=== PATIENT | female | born 1990 ===

== ENCOUNTER 2023-01-06 07:30 | Inpatient (IN) ==
[2023-01-06] MEDS ORDERED: LIDOCAINE 1% LOCAL 20 ML VIAL INFIL PRN (08:01)
[2023-01-06] MEDS ORDERED: OXYTOCIN 30 UNITS/NSS 30 UNITS/500 ML BAG IV PRN (08:01)
[2023-01-06] MEDS ORDERED: LACTATED RINGER'S 1,000 ML IV PRN (08:01)
[2023-01-06] MEDS ORDERED: Patient's ALLERGY Info needs ENTERED SCH (08:30)
[2023-01-06 08:44] LABS: Hematocrit (blood only) 32.4 % (37.0-47.0); Hemoglobin 11.2 g/dl (12.0-16.0); Mean Corpuscular Hemoglobin 31.3 pg (25.0-34.0); Mean Corpuscular Hgb Conc 34.6 g/dL (32.0-36.0); Mean Corpuscular Volume 90.5 fL (80.0-100.0); Platelet Count 194 K/uL (130-400); RDW Coefficient of Variation 13.2 % (11.5-14.5); RDW Standard Deviation 43.2 fL (36.4-46.3); Red Blood Count 3.58 M/uL (4.20-5.40)
--- NOTE | 2023-01-06 10:31 | History & Physical Report ---
Date of Service January 06, 2023 Assessment & Plan Admission and Anticipated Discharge Date Admission Date: January 06, 2023 History of Present Illness Chief Complaint: induction of labor for post dates Primary Care Provider: GALE PCP 32 F P0000 at 40+ weeks here for IOL . GBS is negative Allergies Allergy/AdvReac Type Severity Reaction Status Date / Time No Known Allergies Allergy Unverified 01/06/23 09:20 Home Medications Medication Instructions Recorded Confirmed Type calcium carbonate 500 mg calcium 500 mg PO DAILY PRN Acid Reflux 01/06/23 01/06/23 History (1,250 mg) chewable tablet vits no.124-ferrous fum 1 tab PO DAILY 01/06/23 01/06/23 History 27 mg iron-folic acid 800 mcg tablet ( Vitamin) Patient History Medical History Hemorrhoids Surgical History History of colonoscopy 2020 Hemorroids Social History Smoking Status: Never smoker Hx Alcohol Use: No Hx Substance Use: No Preferred Language: Slovak 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 Required: No Beliefs That Will Affect Care: None marital status: Current Living Situation: Spouse Assistive Devices: None OB History 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 neg Review of Systems All systems reviewed & are unremarkable except as noted in HPI & below Physical Exam Constitutional: WD/WN, vitals as above Eyes: PERRL, conjunctivae normal, anicteric sclerae Respiratory: normal respiratory effort, lungs clear to auscultation Cardiovascular: RRR, no murmur, no edema Gastrointestinal (Abdomen): Inspection/Auscultation: abdomen normal to inspection Musculoskeletal: Extremities: extremities normal to inspection Skin: no rashes, warm and dry Neurologic: patellar DTR's 2+ bilat, sensation intact Psychiatric: A+Ox3, euthymic affect Genitourinary: no vaginal lesions, no adnexal mass Manual OB Exam: + cervical dilation fingertip, + cervical effacement 50% and + station high OB Exam Monitor Tracing: + external FHT monitor used, + external uterine monitor used, + category I and + normal FHT variability cervix posterior/soft EFW 7.5 lbs. Results & Data Vital Signs (Past 12 Hours) Vital Signs Temp Pulse Resp BP 01/06/23 08:27 36.5 C 20 01/06/23 08:05 87 118/71 Laboratory Results Laboratory Results - last 72 hr 01/06/23 01/06/23 08:20 08:20 WBC 8.20 RBC 3.58 L Hgb 11.2 L Hct 32.4 L MCV 90.5 MCH 31.3 MCHC 34.6 RDW Std Deviation 43.2 RDW Coeff of Nancy 13.2 Plt Count 194 MPV 11.0 Blood Type Cancelled Antibody Screen Cancelled Code Status & VTE Plan VTE Prophylaxis Plan VTE Prophylaxis will be ordered: No Monitoring External Monitor Cat 1
[2023-01-06] MEDS ORDERED: DINOPROSTONE 10 MG INSERT PV ONE (10:37)
--- NOTE | 2023-01-06 10:55 | Labor Progress Brief Note ---
Date of Service January 06, 2023 Assessment & Plan Admission and Anticipated Discharge Date Admission Date: January 06, 2023 Physical Exam Genitourinary: OB Exam Monitor Tracing: + external FHT monitor used, + external uterine monitor used, + category I and + normal FHT variability Cervidil 10 mg placed vaginally Results & Data Vital Signs (Past 12 Hours) Vital Signs Temp Pulse Resp BP 01/06/23 08:27 36.5 C 20 01/06/23 08:05 87 118/71
[2023-01-07] MEDS: miSOPROStoL 50 MCG TAB PO PRN ×2 (00:01→04:07)
--- NOTE | 2023-01-07 09:01 | Labor Progress Brief Note ---
Date of Service January 07, 2023 Subjective Reason For Note: Routine Evaluation Assessment & Plan (1) Encounter for induction of labor: Plan Cervidil placed PV for cervical ripening eventually start Pitocin to augment labor pain meds including epidural as the pt desires Admission and Anticipated Discharge Date Admission Date: January 06, 2023 Physical Exam Constitutional: WD/WN, vitals as above Genitourinary: no vaginal lesions, no adnexal mass OB Exam Abdomen: + heart tones (140s, good variability) and + vertex Manual OB Exam: + cervical dilation fingertip, + cervical effacement 50% and + station high OB Exam Monitor Tracing: + external FHT monitor used Results & Data Vital Signs (Past 12 Hours) Vital Signs Temp Pulse Resp BP 01/07/23 07:06 18 01/07/23 07:06 36.8 C 18 01/07/23 07:07 81 111/70 01/07/23 03:05 36.9 C 98 H 16 100/56 L 01/06/23 23:50 16 01/06/23 23:50 36.7 C 16 01/06/23 23:50 77 01/06/23 23:50 99/52 L
[2023-01-07] MEDS ORDERED: DINOPROSTONE 10 MG INSERT PV ONE (09:15)
[2023-01-08] MEDS: miSOPROStoL 25 MCG TAB SL PRN ×2 (00:24→04:42)
[2023-01-08] MEDS ORDERED: OXYTOCIN 30 UNITS/NSS 30 UNITS/500 ML BAG IV PRN (07:52)
--- NOTE | 2023-01-08 07:52 | Obstetrical Progress Note ---
Date of Service January 08, 2023 Assessment & Plan Admission and Anticipated Discharge Date Admission Date: January 06, 2023 Subjective Patient is seen and examined IUP at 40.3 wks, IOL since 01/06 s/p 2 Cervidils, 2 PO, 2 SL Cytotecs No painful ctxs/ LOF/VB +FM has been uncomplicated GBS neg Bed side US: EFW 4020 gr, vertex, FHR 140's, AFV normal FHR categ I VE: Tight 1 cm/ 40%/ -3, posterior Discussed the findings and option of Burgos balloon mechanical dilatation with Oxytocin and she agrees Will eat breakfast and then proceed with Burgos All questions were answered. Results & Data Vital Signs (Past 12 Hours) Vital Signs Temp Pulse BP 01/08/23 04:42 36.9 C 84 99/54 L 01/08/23 00:04 36.6 C 83 101/52 L
--- NOTE | 2023-01-08 08:30 | Obstetrical Progress Note ---
Date of Service January 08, 2023 Assessment & Plan Admission and Anticipated Discharge Date Admission Date: January 06, 2023 Subjective Burgos balloon is placed without difficulty and inflated with 40 ml sterile water, attached to her medial thigh with tension Continue to monitor closely. Results & Data Vital Signs (Past 12 Hours) Vital Signs Temp Pulse BP 01/08/23 04:42 36.9 C 84 99/54 L 01/08/23 00:04 36.6 C 83 101/52 L
[2023-01-08] MEDS: LACTATED RINGER'S 1,000 ML IV SCH ×2 (08:45→15:10)
[2023-01-08] MEDS: BUTORPHANOL TARTRATE 1 MG/ML VIAL IV PRN ×2 (13:24→16:40)
--- NOTE | 2023-01-08 13:28 | Obstetrical Progress Note ---
Date of Service January 08, 2023 Assessment & Plan Admission and Anticipated Discharge Date Admission Date: January 06, 2023 Subjective Patient is reevaluated. She started to feel contractions, pain 5-6 /10 VE; bulb is in, cx feels 2-3 cm FHR categ I Ctxs q4-5 min, Oxytocin 10 miu/min Continue to monitor Results & Data Vital Signs (Past 12 Hours) Vital Signs Temp Pulse Resp BP 01/08/23 09:00 36.9 C 18 01/08/23 12:48 36.8 C 82 123/70 01/08/23 10:30 57 L 137/60 01/08/23 09:00 36.9 C 01/08/23 08:33 78 124/77 01/08/23 04:42 36.9 C 84 99/54 L
--- NOTE | 2023-01-08 14:48 | Obstetrical Progress Note ---
Date of Service January 08, 2023 Assessment & Plan Admission and Anticipated Discharge Date Admission Date: January 06, 2023 Subjective Patient is reevaluated. She slept after Stadol and contractions slowed down VE; bulb is in vagina, bloody show +, Cervix 4/ 30%/ -2, posterior, tight bag, AROM'ed, clear fluid FHR categ I Continue to monitor closely Results & Data Vital Signs (Past 12 Hours) Vital Signs Temp Pulse Resp BP 01/08/23 09:00 36.9 C 18 01/08/23 12:48 36.8 C 82 123/70 01/08/23 10:30 57 L 137/60 01/08/23 09:00 36.9 C 01/08/23 08:33 78 124/77 01/08/23 04:42 36.9 C 84 99/54 L
[2023-01-08] MEDS ORDERED: BUPIVACAINE 0.25% PF 30 ML VIAL ONE (15:10)
[2023-01-08] MEDS ORDERED: fentaNYL citrate PF 100 MCG/2 ML VIAL ONE (15:10)
[2023-01-08] MEDS ORDERED: SODIUM CHLORIDE 0.9% PF INJ 10 ML VIAL ONE (15:10)
[2023-01-08] MEDS ORDERED: ePHEDrine sulfate 50 MG/ML AMP ONE (15:10)
[2023-01-08] MEDS ORDERED: LIDOCAINE 2%/EPINEPHRINE 1:200,000 20 ML PF ONE ×2 (15:11→19:41)
[2023-01-08] MEDS ORDERED: fentaNYL 2MCG/ML ROPIVACAINE 1.25MG/ML 100 ML BAG EPI ONE (15:11)
[2023-01-08] MEDS ORDERED: fentaNYL citrate PF 100 MCG/2 ML VIAL EPI PRN (16:44)
[2023-01-08] MEDS ORDERED: BUPIVACAINE 0.25% PF 30 ML VIAL EPI STA (16:44)
[2023-01-08] MEDS ORDERED: SODIUM CHLORIDE 0.9% PF INJ 10 ML VIAL EPI STA (16:44)
[2023-01-08] MEDS ORDERED: ROPIVACAINE 0.5% PF 5 MG/ML 20 ML VIAL EPI PRN (16:44)
[2023-01-08] MEDS ORDERED: NALOXONE HCL 1 MG in SODIUM CHLORIDE 0.9% 1,000 ML IV PRN ×2 (16:44→20:47)
[2023-01-08] MEDS ORDERED: NALOXONE HCL 0.4 MG/1 ML VIAL/CARP IV PRN ×2 (16:44→20:47)
[2023-01-08] MEDS ORDERED: SODIUM CHLORIDE 0.9% PF INJ 10 ML VIAL EPI PRN (16:44)
[2023-01-08] MEDS ORDERED: fentaNYL citrate PF 100 MCG/2 ML VIAL EPI STA (16:44)
[2023-01-08] MEDS ORDERED: ePHEDrine sulfate 50 MG/ML AMP IV PRN ×2 (16:44→20:47)
[2023-01-08] MEDS ORDERED: LIDOCAINE 2% MPF LOCAL 5 ML VIAL EPI PRN (16:44)
[2023-01-08] MEDS ORDERED: NALBUPHINE HCL INJ 10 MG/ML AMP IV PRN ×2 (16:44→20:47)
[2023-01-08] MEDS ORDERED: LIDOCAINE 2%/EPINEPHRINE 1:200,000 20 ML PF EPI STA (16:44)
[2023-01-08] MEDS ORDERED: diphenhydrAMINE 50 MG/ML VIAL IV PRN ×2 (16:44→20:47)
[2023-01-08] MEDS ORDERED: fentaNYL 2MCG/ML ROPIVACAINE 1.25MG/ML 100 ML BAG EPI PRN (16:44)
[2023-01-08] MEDS ORDERED: BUPIVACAINE 0.25% PF 30 ML VIAL EPI PRN (16:44)
--- NOTE | 2023-01-08 16:44 | Anesthesiology Consultation ---
Date of Service January 08, 2023 Assessment & Plan (1) Encounter for pre-operative examination: Chart Review Chart Review: Patient NOT seen in Pre Admission Testing and Acceptable Risk for Labor Epidural Consults Requested none History Height/Weight Height: 5 ft 8 in Weight: 109.316 kg Allergies Allergy/AdvReac Type Severity Reaction Status Date / Time No Known Allergies Allergy Unverified 01/06/23 09:20 Medications Home Medications Medication Instructions Recorded Confirmed Last Taken calcium carbonate 500 mg calcium 500 mg PO DAILY PRN Acid Reflux 01/06/23 01/06/23 01/06/23 (1,250 mg) chewable tablet vits no.124-ferrous fum 1 tab PO DAILY 01/06/23 01/06/23 01/05/23 27 mg iron-folic acid 800 mcg tablet ( Vitamin) Active Medications Generic Name Dose Route Start Last Admin Trade Name Freq PRN Reason Stop Dose Admin Butorphanol Tartrate 1 mg 01/08/23 07:52 01/08/23 16:40 Butorphanol Tartrate 1 Mg/Ml Vial IV 02/07/23 07:51 1 mg Q2HWA PRN Administration Pain Oxytocin 30 units in 500 mls @ 20 mls/hr 01/08/23 07:52 01/08/23 15:30 Pitocin IV 01/10/23 07:51 1.2 units/hr .Q24H PRN 20 mls/hr Labor Induction/Augmentation Titration Protocol 1.2 UNITS/HR Lactated Ringer's 1,000 mls @ 150 mls/hr 01/08/23 10:15 01/08/23 15:10 Lr IV 02/07/23 10:14 999 mls/hr .[id number] CORNELL Administration Misoprostol 25 mcg 01/07/23 23:00 01/08/23 04:42 Misoprostol 25 Mcg Tab SL 02/06/23 22:59 25 mcg Q4 PRN Administration Cervical Ripening Past Medical History Medical History Hemorrhoids Past Surgical History Surgical History History of colonoscopy 2020 Hemorroids Social History Smoking Status: Never smoker Hx Alcohol Use: No Hx Substance Use: No Physical Exam Vital Signs Last Vital Signs Temp 98.4 F 01/08/23 15:05 Pulse 74 01/08/23 16:41 Resp 16 01/08/23 15:05 BP 113/74 01/08/23 16:33 Pulse Ox 98 01/08/23 16:41 Testing Laboratory Results 01/06/23 08:20 Blood Type A Positive 01/06/23 08:20 Blood Type Cancelled 01/06/23 08:20 Antibody Screen Cancelled 01/06/23 08:20 Antibody Screen NEGATIVE 01/06/23 08:20
--- NOTE | 2023-01-08 17:31 | Obstetrical Progress Note ---
Date of Service January 08, 2023 Assessment & Plan Admission and Anticipated Discharge Date Admission Date: January 06, 2023 Subjective Patient has received epidural for pain, now she is comfortable VE; unchanged since AROM, 4/ 30%/ -3, posterior and high, IUPC is placed to track contractions better and adjust Oxytocin dose, at 22 miu/min now Continue to monitor closely Results & Data Vital Signs (Past 12 Hours) Vital Signs Temp Pulse Resp BP Pulse Ox 01/08/23 09:00 36.9 C 18 01/08/23 17:28 61 94 01/08/23 17:27 61 118/65 01/08/23 17:26 62 94 01/08/23 17:24 112/66 01/08/23 17:22 63 93 01/08/23 17:21 62 120/66 95 01/08/23 17:18 66 119/65 01/08/23 17:16 66 96 01/08/23 17:15 69 114/63 01/08/23 17:13 66 94 01/08/23 17:11 80 95 01/08/23 17:12 65 107/56 L 01/08/23 17:09 84 127/71 01/08/23 17:06 94 01/08/23 17:06 77 01/08/23 17:06 72 121/62 94 01/08/23 17:03 73 117/61 01/08/23 17:01 68 95 01/08/23 16:59 93 H 111/66 93 01/08/23 16:57 77 117/64 01/08/23 16:56 77 117/65 96 01/08/23 16:55 68 118/65 01/08/23 16:54 68 120/67 01/08/23 16:51 78 121/66 96 01/08/23 16:50 80 122/61 01/08/23 16:46 72 93 01/08/23 16:41 74 98 01/08/23 16:36 79 98 01/08/23 16:33 77 113/74 01/08/23 16:31 73 96 01/08/23 16:26 80 97 01/08/23 16:21 75 97 01/08/23 16:19 77 114/77 01/08/23 16:16 67 98 01/08/23 16:11 79 96 01/08/23 16:06 75 97 01/08/23 16:03 68 120/78 01/08/23 16:01 56 L 98 01/08/23 15:56 75 98 01/08/23 15:51 72 99 01/08/23 15:05 16 01/08/23 15:05 36.9 C 16 01/08/23 15:46 79 98 01/08/23 15:41 76 99 01/08/23 15:36 58 L 98 01/08/23 15:31 79 97 01/08/23 15:01 81 123/63 01/08/23 12:48 36.8 C 82 123/70 01/08/23 10:30 57 L 137/60 01/08/23 09:00 36.9 C 01/08/23 08:33 78 124/77
[2023-01-08] MEDS ORDERED: AZITHROMYCIN 500 MG in DEXTROSE 5% 250 ML IV STA (19:23)
--- NOTE | 2023-01-08 19:28 | Obstetrical Progress Note ---
Date of Service January 08, 2023 Assessment & Plan Admission and Anticipated Discharge Date Admission Date: January 06, 2023 Subjective Patient is reevaluated. She has been on oxytocin at 28 MIU/MIN, IUPC is showing uterine contractions averaging over 200 mVU for the last 2 hours. heart rate had been with category 1 to category 2, some of the early decelerations with contractions have a late component, baseline at 110-120, good accelerations and variability after vaginal exam. Cervix is unchanged, 4 cm dilated, still think about 40% effaced, head is still posterior and high at -4 station. Discussed the finding with the patient either going through primary due to failed induction, no cervical change despite adequate contractions, AROM and oxytocin versus continue to monitor closely for trial of labor. Patient understands C section is a major surgery, with risks including but not limited to bleeding , infection, injury to surrounding organs like bowels, bladder, ureters, adhesions, scarring, wound infection, blood cloths in legs/ lungs, longer recovery. All questions were answered. Patient decided to go for a and She signed an informed consent. Results & Data Vital Signs (Past 12 Hours) Vital Signs Temp Pulse Resp BP Pulse Ox 01/08/23 09:00 36.9 C 18 01/08/23 19:21 83 100 01/08/23 19:16 98 01/08/23 19:16 100 H 01/08/23 19:16 91 H 111/57 L 92 01/08/23 19:11 86 100 01/08/23 19:06 64 99 01/08/23 19:02 68 113/78 01/08/23 19:01 67 100 01/08/23 18:56 80 98 01/08/23 18:51 70 97 01/08/23 18:46 96 01/08/23 18:46 67 01/08/23 18:46 68 114/72 01/08/23 18:41 59 L 96 01/08/23 18:36 60 97 01/08/23 18:31 64 97 01/08/23 18:32 63 112/64 01/08/23 18:26 67 97 01/08/23 18:21 78 96 01/08/23 18:16 96 01/08/23 18:16 71 01/08/23 18:16 70 111/58 L 01/08/23 18:11 61 94 01/08/23 18:09 61 94 01/08/23 18:06 62 94 01/08/23 18:02 60 94 01/08/23 18:01 64 115/62 96 01/08/23 17:56 66 94 01/08/23 17:51 57 L 94 01/08/23 17:48 60 94 01/08/23 17:46 64 93 01/08/23 17:47 68 119/67 01/08/23 17:41 65 95 01/08/23 17:36 61 94 01/08/23 17:31 67 95 01/08/23 17:30 68 124/67 01/08/23 17:28 61 94 01/08/23 17:27 61 118/65 01/08/23 17:26 62 94 01/08/23 17:24 112/66 01/08/23 17:22 63 93 01/08/23 17:21 62 120/66 95 01/08/23 17:18 66 119/65 01/08/23 17:16 66 96 01/08/23 17:15 69 114/63 01/08/23 17:13 66 94 01/08/23 17:11 80 95 01/08/23 17:12 65 107/56 L 01/08/23 17:09 84 127/71 01/08/23 17:06 94 01/08/23 17:06 77 01/08/23 17:06 72 121/62 94 01/08/23 17:03 73 117/61 01/08/23 17:01 68 95 01/08/23 16:59 93 H 111/66 93 01/08/23 16:57 77 117/64 01/08/23 16:56 77 117/65 96 01/08/23 16:55 68 118/65 01/08/23 16:54 68 120/67 01/08/23 16:51 78 121/66 96 01/08/23 16:50 80 122/61 01/08/23 16:46 72 93 01/08/23 16:41 74 98 01/08/23 16:36 79 98 01/08/23 16:33 77 113/74 01/08/23 16:31 73 96 01/08/23 16:26 80 97 01/08/23 16:21 75 97 01/08/23 16:19 77 114/77 01/08/23 16:16 67 98 01/08/23 16:11 79 96 01/08/23 16:06 75 97 01/08/23 16:03 68 120/78 01/08/23 16:01 56 L 98 01/08/23 15:56 75 98 01/08/23 15:51 72 99 01/08/23 15:05 16 01/08/23 15:05 36.9 C 16 01/08/23 15:46 79 98 01/08/23 15:41 76 99 01/08/23 15:36 58 L 98 01/08/23 15:31 79 97 01/08/23 15:01 81 123/63 01/08/23 12:48 36.8 C 82 123/70 01/08/23 10:30 57 L 137/60 01/08/23 09:00 36.9 C 01/08/23 08:33 78 124/77
[2023-01-08] MEDS ORDERED: LACTATED RINGER'S 1,000 ML IV SCH (19:30)
[2023-01-08] MEDS ORDERED: CITRIC ACID/SODIUM CITRATE 15 ML UDC ONE (19:39)
[2023-01-08] MEDS ORDERED: ONDANSETRON INJ 2 MG/ML 2 ML VIAL ONE (19:41)
[2023-01-08] MEDS ORDERED: OXYTOCIN 10 UNITS/ML VIAL ONE (19:41)
[2023-01-08] MEDS ORDERED: MoRPHine SULFATE PF 1 MG/ML 10 ML AMP/VIAL ONE (19:41)
[2023-01-08 20:07] LABS: Basophils # (auto) 0.03 K/uL (0.00-0.20); Basophils % (auto) 0.2 %; Eosinophils # (auto) 0.03 K/uL (0.00-0.50); Eosinophils % (auto) 0.2 %; Hematocrit (blood only) 36.6 % (37.0-47.0); Hemoglobin 12.5 g/dl (12.0-16.0); Immature Granulocytes # (auto) 0.07 K/uL (0.01-0.20); Immature Granulocytes % (auto) 0.5 %; Lymphocytes % (auto) 16.5 %; Mean Corpuscular Hemoglobin 31.2 pg (25.0-34.0); Mean Corpuscular Hgb Conc 34.2 g/dL (32.0-36.0); Mean Corpuscular Volume 91.3 fL (80.0-100.0); Monocytes # (auto) 0.93 K/uL (0.11-0.59); Neutrophils # (auto) 10.08 K/uL (1.40-6.50); Neutrophils % (auto) 75.6 %; Platelet Count 199 K/uL (130-400); RDW Coefficient of Variation 13.2 % (11.5-14.5); RDW Standard Deviation 43.8 fL (36.4-46.3); Red Blood Count 4.01 M/uL (4.20-5.40); White Blood Count 13.34 K/ul (4.8-10.8)
[2023-01-08] MEDS ORDERED: Nursing to Pharmacy Communication SCH (20:15)
[2023-01-08] MEDS ORDERED: METHYLERGONOVINE MALEATE 0.2 MG/ML AMP ONE (20:45)
[2023-01-08] MEDS ORDERED: KETOROLAC 30 MG/ML VIAL ONE (20:45)
[2023-01-08] MEDS ORDERED: HYDROmorphone INJ 0.5 MG/0.5 ML SYR IV PRN (20:47)
[2023-01-08] MEDS ORDERED: ONDANSETRON INJ 2 MG/ML 2 ML VIAL IV PRN (20:47)
[2023-01-08] MEDS ORDERED: LACTATED RINGER'S 500 ML IV PRN (20:47)
[2023-01-08] MEDS ORDERED: KETOROLAC 30 MG/ML VIAL IV PRN (20:47)
[2023-01-08] MEDS ORDERED: PROMETHAZINE HCL 12.5 MG in SODIUM CHLORIDE 0.9% 50 ML IV PRN (20:47)
[2023-01-08] MEDS ORDERED: ACETAMINOPHEN 1,000 MG/100 ML VIAL IV PRN (20:47)
[2023-01-08] MEDS ORDERED: NALOXONE HCL 0.08 MG in SYRINGE 1.8 ML IV PRN (20:47)
[2023-01-08] MEDS ORDERED: MoRPHine SULFATE PF 1 MG/ML 10 ML AMP/VIAL EPI ONE (20:47)
[2023-01-08] MEDS ORDERED: DC INTRASPINAL MORPHINE SCH (21:00)
[2023-01-08] MEDS ORDERED: NO NARCOTICS OR SEDATIVES SCH (21:00)
[2023-01-08] MEDS ORDERED: SODIUM CHLORIDE 0.9% 1,000 ML IV SCH (21:00)
[2023-01-08] MEDS ORDERED: DIPHTHERIA/TETANUS/PERTUSSIS Vaccine (Tdap, Age 7+yrs) 0.5mL SYR/VL IM ONE (21:13)
[2023-01-08] MEDS ORDERED: MAGNESIUM HYDROXIDE SUSP 30 ML UDC PO PRN (21:13)
[2023-01-08] MEDS ORDERED: MEASLES, MUMPS & RUBELLA VIRUS VACCINE (MMR) VIAL SQ ONE (21:13)
[2023-01-08] MEDS ORDERED: BENZOCAINE 20% SPRY 85 APPLN/85 GM CAN EXT PRN (21:13)
[2023-01-08] MEDS ORDERED: HYDROCORTISONE ACETATE 25 MG SUPP PR PRN (21:13)
[2023-01-08] MEDS ORDERED: SENNA 8.6 MG TAB PO PRN (21:13)
[2023-01-08] MEDS ORDERED: OXYTOCIN 20 UNITS in LACTATED RINGER'S 1,000 ML IV SCH (21:15)
--- NOTE | 2023-01-08 21:23 | Operative Report ---
Post Operative Report Pre & Post Diagnosis Operation Date: 01/08/23 19:45 Pre-Op Diagnosis: Arrest of dilitation despite adequate contractions; failed induction Post-Op Diagnosis: same as pre-op I identified the patient and participated in the time-out.: Yes Procedure Operation Date: 01/08/23 19:45 Actual Procedures Primary Low transverse Section in for the live of a female child @ 2035 - Kira Dailey MD Surgeon Kira Dailey MD [employer] Dr Otto Estimated Blood Loss 600 Findings Consistent with Post-Op Diagnosis Baby was a viable female infant delivered at 2019 6 PM, Apgars 8/9 and weight is 3985 g. Baby was delivered in cephalic presentation, there was a nuchal cord around the neck x1. Maternal findings normal uterus, fallopian tubes and ovaries. Specimens Placenta Drains Burgos catheter drained 400 mL of clear urine Anesthesia Type Labor Epidural Complications none Disposition Accompanied Patient To Recovery: Yes Indications Patient is a 32-year-old at 40 weeks and 3 days of gestation who asthma who was admitted on January 06, 2023 for induction of labor for postdates. She had received cervical ripening for 2 days and started on IV oxytocin and Burgos balloon mechanical dilatation this morning. Burgos bulb came out at 2:30 PM and artificial rupture of membranes were performed by myself with clear fluids. Despite adequate uterine contractions heart head has not descent and cervix has not changed for over hours. Decision was made to proceed with primary see progress note for details. Description of Procedure Patient was taken to operating room where epidural anesthesia was checked to be adequate. She was placed in dorsal supine position with a leftward tilt. She was prepared and draped in usual sterile fashion. A financial skin incision was made and carried through to the underlying layer of fascia with the Bovie. Fa scia was incised in the midline and incision was extended laterally with the help of Day scissors. Then the upper aspect of the fascial incision was grasped with 2 Rafi clamps elevated the underlying rectus muscles were dissected off sharply with Day scissors. Same thing was done on the lower incision. Then the muscles were in the midline, peritoneum was identified grasped with 2 pickups and entered sharply with Metzenbaum scissors. Peritoneal incision was extended superior and inferiorly with good visualization of the bladder. The bladder blade was inserted. Vesicouterine peritoneum was identified, grasped with pickups and entered sharply with Metzenbaum scissors, bladder flap was created digitally and bladder blade was reinserted. Uterus was incised in transverse fashion, incision was extended laterally with our appendage scissors, membranes were ruptured and clear fluid was obtained. Baby's head was delivered without difficulty, there was a nuchal cord around t he neck x1, which was reduced. Mouth and nose were suctioned there was dried on the field he was vigorously crying and moving. The cord was clamped times and cut at 1 minute delay and then the was handed off to the pediatric team. Then the placenta was delivered manually as intact and complete. Unable to externalize the uterus due to its size, inside of the uterus was cleared of all clots and debris. Uterine incision was repaired with 0 Vicryl in a running locked fashion, second umbilicating layer was placed with the same suture in running locked fashion. Excellent hemostasis achieved. the pelvis was irrigated with warm normal saline and suctioned. Incision was checked to be hemostatic again. Parietal peritoneum was reapproximated with 2-0 Vicryl in a running fashion and the muscles were reapproximated in the same suture in a running fashion. All of the fascia and rectus muscles were hemostatic. Rectus fascia was reapproximated with 0 Vicryl in a running fashion. Subcuticular fat tissue was brought together with 2-0 Vicryl in a running fashion, skin was closed with 4-0 Monocryl in a subcuticular cuticular fashion. The mom and baby tolerated procedure well. Sponge needle instrument count was correct x3. No complications happened, I was present during whole procedure. My nurse practitioner physician assistant was needed for retraction, hemostasis and aid during delivery of I attest to the content of the Intraoperative Record and any orders documented therein. Any exceptions are noted below.
--- NOTE | 2023-01-08 21:32 | Anesthesia Procedure Note ---
Date of Service January 08, 2023 Anesthesia Post Epidural Note Vital Signs Vital Signs: Temp Pulse Resp BP Pulse Ox 98.4 F 79 16 117/63 97 01/08/23 15:05 01/08/23 21:26 01/08/23 15:05 01/08/23 21:21 01/08/23 21:26 Pain Intensity Abdomen: Pain Intensity: 5 Notes Mental Status: alert / awake / arousable and participated in evaluation Nausea / Vomiting: adequately controlled Pain: adequately controlled Airway Patency, RR, SpO2: stable & adequate BP & HR: stable & adequate Hydration State: stable & adequate Neuraxial Anesthesia: was administered and sensory block is resolving Anesthetic Complications: no major complications apparent and Pt Satisfied with anesthetic care Epidural: Removed without complications and With tip intact
--- NOTE | 2023-01-08 21:32 | Anesthesiology Progress Note ---
Date of Service January 08, 2023 Anesthesia Post Procedure Vital Signs Vital Signs: Temp Pulse Resp BP Pulse Ox 01/08/23 09:00 98.4 F 18 01/08/23 21:26 79 97 01/08/23 21:21 97 01/08/23 21:21 87 01/08/23 21:21 90 117/63 01/08/23 20:04 83 97 01/08/23 20:01 93 H 108/67 93 01/08/23 19:59 92 H 96 01/08/23 19:54 104 H 98 01/08/23 19:49 93 01/08/23 19:49 113 H 01/08/23 19:49 104 H 138/59 L 01/08/23 19:47 109 H 116/72 01/08/23 19:44 107 H 98 01/08/23 19:36 104 H 96 01/08/23 19:32 91 H 125/72 01/08/23 19:31 75 99 01/08/23 19:26 79 99 01/08/23 19:21 83 100 01/08/23 19:16 98 01/08/23 19:16 100 H 01/08/23 19:16 91 H 111/57 L 92 01/08/23 19:11 86 100 01/08/23 19:06 64 99 01/08/23 19:02 68 113/78 01/08/23 19:01 67 100 01/08/23 18:56 80 98 01/08/23 18:51 70 97 01/08/23 18:46 96 01/08/23 18:46 67 01/08/23 18:46 68 114/72 01/08/23 18:41 59 L 96 01/08/23 18:36 60 97 01/08/23 18:31 64 97 01/08/23 18:32 63 112/64 01/08/23 18:26 67 97 01/08/23 18:21 78 96 01/08/23 18:16 96 01/08/23 18:16 71 01/08/23 18:16 70 111/58 L 01/08/23 18:11 61 94 01/08/23 18:09 61 94 01/08/23 18:06 62 94 01/08/23 18:02 60 94 01/08/23 18:01 64 115/62 96 01/08/23 17:56 66 94 01/08/23 17:51 57 L 94 01/08/23 17:48 60 94 01/08/23 17:46 64 93 01/08/23 17:47 68 119/67 01/08/23 17:41 65 95 01/08/23 17:36 61 94 01/08/23 17:31 67 95 01/08/23 17:30 68 124/67 01/08/23 17:28 61 94 01/08/23 17:27 61 118/65 01/08/23 17:26 62 94 01/08/23 17:24 112/66 01/08/23 17:22 63 93 01/08/23 17:21 62 120/66 95 01/08/23 17:18 66 119/65 01/08/23 17:16 66 96 01/08/23 17:15 69 114/63 01/08/23 17:13 66 94 01/08/23 17:11 80 95 01/08/23 17:12 65 107/56 L 01/08/23 17:09 84 127/71 01/08/23 17:06 94 01/08/23 17:06 77 01/08/23 17:06 72 121/62 94 01/08/23 17:03 73 117/61 01/08/23 17:01 68 95 01/08/23 16:59 93 H 111/66 93 01/08/23 16:57 77 117/64 01/08/23 16:56 77 117/65 96 01/08/23 16:55 68 118/65 01/08/23 16:54 68 120/67 01/08/23 16:51 78 121/66 96 01/08/23 16:50 80 122/61 01/08/23 16:46 72 93 01/08/23 16:41 74 98 01/08/23 16:36 79 98 01/08/23 16:33 77 113/74 01/08/23 16:31 73 96 01/08/23 16:26 80 97 01/08/23 16:21 75 97 01/08/23 16:19 77 114/77 01/08/23 16:16 67 98 01/08/23 16:11 79 96 01/08/23 16:06 75 97 01/08/23 16:03 68 120/78 01/08/23 16:01 56 L 98 01/08/23 15:56 75 98 01/08/23 15:51 72 99 01/08/23 15:05 16 01/08/23 15:05 98.4 F 16 01/08/23 15:46 79 98 01/08/23 15:41 76 99 01/08/23 15:36 58 L 98 01/08/23 15:31 79 97 01/08/23 15:01 81 123/63 01/08/23 12:48 98.2 F 82 123/70 01/08/23 10:30 57 L 137/60 01/08/23 09:00 98.4 F 01/08/23 08:33 78 124/77 01/08/23 04:42 98.4 F 84 99/54 L 01/08/23 00:04 97.9 F 83 101/52 L Pain Intensity Abdomen: Pain Intensity: 5 Transfer of Care Handoff Completed per policy Notes Mental Status: alert / awake / arousable and participated in evaluation Patient Amnestic to Procedure: No Nausea / Vomiting: adequately controlled Pain: adequately controlled Airway Patency, RR, SpO2: stable & adequate BP & HR: stable & adequate Hydration State: stable & adequate Neuraxial Anesthesia: was administered and sensory block is resolving Anesthetic Complications: no major complications apparent and Pt Satisfied with anesthetic care
[2023-01-08] MEDS: METHYLERGONOVINE MALEATE 0.2 MG TAB PO SCH (22:10)
[2023-01-09] MEDS ORDERED: SODIUM CHLORIDE 0.9% 250 ML IV PRN (00:05)
[2023-01-09] MEDS: LACTATED RINGER'S 1,000 ML IV SCH ×4 (02:30→19:28)
[2023-01-09] MEDS ORDERED: CITRIC ACID/SODIUM CITRATE 15 ML UDC PO SCH (06:00)
[2023-01-09 06:49] LABS: Basophils # (auto) 0.02 K/uL (0.00-0.20); Basophils % (auto) 0.2 %; Eosinophils # (auto) 0.01 K/uL (0.00-0.50); Eosinophils % (auto) 0.1 %; Hematocrit (blood only) 33.4 % (37.0-47.0); Hemoglobin 11.5 g/dl (12.0-16.0); Immature Granulocytes # (auto) 0.05 K/uL (0.01-0.20); Immature Granulocytes % (auto) 0.5 %; Lymphocytes # (auto) 1.62 K/uL (1.20-3.40); Lymphocytes % (auto) 15.1 %; Mean Corpuscular Hemoglobin 31.3 pg (25.0-34.0); Mean Corpuscular Hgb Conc 34.4 g/dL (32.0-36.0); Mean Corpuscular Volume 90.8 fL (80.0-100.0); Mean Platelet Volume 11.3 fL (9.4-12.4); Monocytes # (auto) 0.74 K/uL (0.11-0.59); Monocytes % (auto) 6.9 %; Neutrophils # (auto) 8.27 K/uL (1.40-6.50); Neutrophils % (auto) 77.2 %; Platelet Count 147 K/uL (130-400); RDW Coefficient of Variation 13.2 % (11.5-14.5); RDW Standard Deviation 42.9 fL (36.4-46.3); Red Blood Count 3.68 M/uL (4.20-5.40); White Blood Count 10.71 K/ul (4.8-10.8)
[2023-01-09] MEDS: FERROUS SULFATE 325 MG TAB PO SCH (08:51)
[2023-01-09] MEDS: SIMETHICONE 80 MG CHEW PO SCH ×4 (08:51→20:13)
[2023-01-09] MEDS: DOCUSATE SODIUM 100 MG CAP PO SCH ×2 (08:51→20:13)
[2023-01-09] MEDS: PRENATAL VITAMIN 1 TAB PO SCH (08:51)
--- NOTE | 2023-01-09 09:51 | Obstetrical Progress Note ---
Date of Service January 09, 2023 Assessment & Plan Admission and Anticipated Discharge Date Admission Date: January 06, 2023 Subjective Patient is seen and examined. She feels well, no complaints. Pain is under control with oral meds. Got up without dizziness Has not Voided, mcelroy is in Tolerating regular diet with out N&V Flatus neg Bleeding is minimal No fever/ chills/ CP/ SOB/ N&V/ Leg pain Breast feeding without problems Vital Signs Height Weight Body Mass Index Blood Pressure Blood Pressure Position Temperature Temperature Source 5 ft 8 in 109.316 kg 36.6 127/74 Semi-fowlers 37 C Oral 01/08/23 16:48 01/08/23 16:48 01/06/23 08:27 01/09/23 07:30 01/09/23 07:30 01/09/23 07:30 01/09/23 07:30 Pulse Rate Respiratory Rate Pulse Oximetry 76 16 92 01/09/23 07:30 01/09/23 09:30 01/09/23 09:30 Lab Results 01/06/23 01/06/23 01/06/23 Range/Units 08:20 08:20 08:20 WBC 8.20 (4.8-10.8) K/ul RBC 3.58 L (4.20-5.40) M/uL Hgb 11.2 L (12.0-16.0) g/dl Hct 32.4 L (37.0-47.0) % MCV 90.5 (80.0-100.0) fL MCH 31.3 (25.0-34.0) pg MCHC 34.6 (32.0-36.0) g/dL RDW Std Deviation 43.2 (36.4-46.3) fL RDW Coeff of Nancy 13.2 (11.5-14.5) % Plt Count 194 (130-400) K/uL MPV 11.0 (9.4-12.4) fL Immature Gran % (Auto) % Neut % (Auto) % Lymph % (Auto) % Cooper % (Auto) % Eos % (Auto) % Baso % (Auto) % Neut # (Auto) (1.40-6.50) K/uL Lymph # (Auto) (1.20-3.40) K/uL Cooper # (Auto) (0.11-0.59) K/uL Eos # (Auto) (0.00-0.50) K/uL Baso # (Auto) (0.00-0.20) K/uL Immature Gran # (Auto) (0.01-0.20) K/uL Blood Type A Positive Cancelled Antibody Screen NEGATIVE Cancelled 01/08/23 01/08/23 01/09/23 Range/Units 19:43 19:43 06:21 WBC 13.34 H 10.71 (4.8-10.8) K/ul RBC 4.01 L 3.68 L (4.20-5.40) M/uL Hgb 12.5 11.5 L (12.0-16.0) g/dl Hct 36.6 L 33.4 L (37.0-47.0) % MCV 91.3 90.8 (80.0-100.0) fL MCH 31.2 31.3 (25.0-34.0) pg MCHC 34.2 34.4 (32.0-36.0) g/dL RDW Std Deviation 43.8 42.9 (36.4-46.3) fL RDW Coeff of Nancy 13.2 13.2 (11.5-14.5) % Plt Count 199 147 (130-400) K/uL MPV 11.0 11.3 (9.4-12.4) fL Immature Gran % (Auto) 0.5 0.5 % Neut % (Auto) 75.6 77.2 % Lymph % (Auto) 16.5 15.1 % Cooper % (Auto) 7.0 6.9 % Eos % (Auto) 0.2 0.1 % Baso % (Auto) 0.2 0.2 % Neut # (Auto) 10.08 H 8.27 H (1.40-6.50) K/uL Lymph # (Auto) 2.20 1.62 (1.20-3.40) K/uL Cooper # (Auto) 0.93 H 0.74 H (0.11-0.59) K/uL Eos # (Auto) 0.03 0.01 (0.00-0.50) K/uL Baso # (Auto) 0.03 0.02 (0.00-0.20) K/uL Immature Gran # (Auto) 0.07 0.05 (0.01-0.20) K/uL Blood Type A Positive Antibody Screen NEGATIVE PE: General: Alert, orientedx3, NAD CVS: S1S2 RRR Lungs; CTAB Abd: soft, NT, ND, BS+, fundus firm, below Umbilicus Incision/Dressing: Clean, dry, intact Perineum intact, Lochia rubra minimal Ext; NT, no edema AP: 32 yo s/p C Section, pod# 1 VSS Afebrile doing well H&H stable Continue routine postop care Encourage ambulation, PO intake All questions were answered Results & Data Vital Signs (Past 12 Hours) Vital Signs Temp Pulse Pulse Resp BP BP Pulse Ox 01/09/23 09:30 16 92 01/09/23 08:25 16 94 01/09/23 07:30 16 93 01/09/23 07:30 37 C 76 16 127/74 93 01/09/23 03:16 37.4 C 72 18 118/64 97 01/09/23 02:43 18 97 01/09/23 01:30 18 94 01/09/23 00:45 20 91 01/08/23 23:40 36.8 C 68 20 121/73 92 01/08/23 23:25 18 01/08/23 22:15 36.8 C 16 94 01/08/23 22:45 36.8 C 16 94 01/08/23 22:25 36.8 C 16 95 01/08/23 23:26 74 90 01/08/23 23:25 75 129/66 01/08/23 23:21 77 91 01/08/23 23:16 78 92 01/08/23 23:15 75 120/62 01/08/23 23:11 74 92 01/08/23 23:06 79 93 01/08/23 23:05 77 126/57 L 01/08/23 23:01 67 91 01/08/23 22:59 71 94 01/08/23 22:56 72 93 01/08/23 22:55 65 123/61 01/08/23 22:51 79 92 01/08/23 22:46 85 88 L 01/08/23 22:41 93 01/08/23 22:41 78 01/08/23 22:41 78 93 01/08/23 22:36 81 91 01/08/23 22:35 81 139/56 L 01/08/23 22:31 82 93 01/08/23 22:26 77 93 01/08/23 22:25 76 140/63 01/08/23 22:21 76 92 01/08/23 22:16 80 93 01/08/23 22:15 76 140/63 01/08/23 22:11 94 01/08/23 22:11 77 01/08/23 22:11 79 01/08/23 22:06 95 01/08/23 22:06 84 01/08/23 22:06 89 93 01/08/23 22:05 87 137/64 01/08/23 22:01 89 95 01/08/23 22:00 86 93 01/08/23 21:56 94 01/08/23 21:56 86 01/08/23 21:57 80 141/65 H 01/08/23 21:56 85 179/77 H 01/08/23 21:51 83 95 01/08/23 21:52 88 94 O2 Del Method 01/09/23 09:30 01/09/23 08:25 01/09/23 07:30 01/09/23 07:30 Room Air 01/09/23 03:16 Room Air 01/09/23 02:43 01/09/23 01:30 01/09/23 00:45 01/08/23 23:40 Room Air 01/08/23 23:25 01/08/23 22:15 01/08/23 22:45 01/08/23 22:25 01/08/23 23:26 01/08/23 23:25 01/08/23 23:21 01/08/23 23:16 01/08/23 23:15 01/08/23 23:11 01/08/23 23:06 01/08/23 23:05 01/08/23 23:01 01/08/23 22:59 01/08/23 22:56 01/08/23 22:55 01/08/23 22:51 01/08/23 22:46 01/08/23 22:41 01/08/23 22:41 01/08/23 22:41 01/08/23 22:36 01/08/23 22:35 01/08/23 22:31 01/08/23 22:26 01/08/23 22:25 01/08/23 22:21 01/08/23 22:16 01/08/23 22:15 01/08/23 22:11 01/08/23 22:11 01/08/23 22:11 01/08/23 22:06 01/08/23 22:06 01/08/23 22:06 01/08/23 22:05 01/08/23 22:01 01/08/23 22:00 01/08/23 21:56 01/08/23 21:56 01/08/23 21:57 01/08/23 21:56 01/08/23 21:51 01/08/23 21:52
[2023-01-09] MEDS: METHYLERGONOVINE MALEATE 0.2 MG TAB PO SCH ×4 (13:30→19:29)
[2023-01-09] MEDS ORDERED: PROMETHAZINE HCL 25 MG in SODIUM CHLORIDE 0.9% 50 ML IV PRN (14:47)
[2023-01-09] MEDS ORDERED: diphenhydrAMINE 50 MG/ML VIAL IV PRN (14:47)
[2023-01-09] MEDS ORDERED: MEPERIDINE HCL 50 MG/ML CARP IV PRN (14:47)
[2023-01-09] MEDS ORDERED: ONDANSETRON INJ 2 MG/ML 2 ML VIAL IV PRN (14:47)
[2023-01-09] MEDS ORDERED: KETOROLAC 30 MG/ML VIAL IV PRN (14:47)
[2023-01-09] MEDS ORDERED: diphenhydrAMINE Capsule 25 MG CAP PO PRN (14:47)
[2023-01-09] MEDS ORDERED: oxyCODONE/ACETAMINOPHEN 5mg/325mg TAB PO PRN (14:47)
[2023-01-09] MEDS: IBUPROFEN 600 MG TAB PO PRN ×3 (15:32→23:30)
[2023-01-09] MEDS ORDERED: bisacodyL 5 MG TABEC PO SCH (20:00)
[2023-01-10] MEDS ORDERED: bisacodyL 10 MG SUPP PR PRN
[2023-01-10 06:59] LABS: Hematocrit (blood only) 30.1 % (37.0-47.0); Hemoglobin 10.1 g/dl (12.0-16.0)
[2023-01-10] MEDS: FERROUS SULFATE 325 MG TAB PO SCH (07:43)
[2023-01-10] MEDS: PRENATAL VITAMIN 1 TAB PO SCH (07:43)
[2023-01-10] MEDS: IBUPROFEN 600 MG TAB PO PRN ×4 (07:43→22:16)
[2023-01-10] MEDS: DOCUSATE SODIUM 100 MG CAP PO SCH ×2 (07:43→22:16)
[2023-01-10] MEDS: SIMETHICONE 80 MG CHEW PO SCH ×3 (07:44→17:18)
[2023-01-10] MEDS: METHYLERGONOVINE MALEATE 0.2 MG TAB PO SCH ×4 (07:44→22:17)
--- NOTE | 2023-01-10 08:52 | Obstetrical Progress Note ---
Date of Service January 10, 2023 Assessment & Plan Admission and Anticipated Discharge Date Admission Date: January 06, 2023 Subjective Patient is seen and examined. She feels well, no complaints. Pain is under control with oral meds. Ambulating without dizziness Voiding without difficulty Tolerating regular diet with out N&V Flatus + BM neg Bleeding is minimal No fever/ chills/ CP/ SOB/ N&V/ Leg pain Breast feeding without problems Vital Signs Temp Pulse Resp BP Pulse Ox O2 Del Method 01/10/23 07:50 36.8 C 82 16 127/73 96 Room Air 01/09/23 21:00 36.7 C 87 18 110/78 93 Room Air 01/09/23 22:51 36.8 C 62 18 127/74 97 Room Air Lab Results 01/06/23 01/06/23 01/06/23 Range/Units 08:20 08:20 08:20 WBC 8.20 (4.8-10.8) K/ul RBC 3.58 L (4.20-5.40) M/uL Hgb 11.2 L (12.0-16.0) g/dl Hct 32.4 L (37.0-47.0) % MCV 90.5 (80.0-100.0) fL MCH 31.3 (25.0-34.0) pg MCHC 34.6 (32.0-36.0) g/dL RDW Std Deviation 43.2 (36.4-46.3) fL RDW Coeff of Nancy 13.2 (11.5-14.5) % Plt Count 194 (130-400) K/uL MPV 11.0 (9.4-12.4) fL Immature Gran % (Auto) % Neut % (Auto) % Lymph % (Auto) % [place]duffie % (Auto) % Eos % (Auto) % Baso % (Auto) % Neut # (Auto) (1.40-6.50) K/uL Lymph # (Auto) (1.20-3.40) K/uL Mcduffie # (Auto) (0.11-0.59) K/uL Eos # (Auto) (0.00-0.50) K/uL Baso # (Auto) (0.00-0.20) K/uL Immature Gran # (Auto) (0.01-0.20) K/uL Blood Type A Positive Cancelled Antibody Screen NEGATIVE Cancelled 01/08/23 01/08/23 01/09/23 Range/Units 19:43 19:43 06:21 WBC 13.34 H 10.71 (4.8-10.8) K/ul RBC 4.01 L 3.68 L (4.20-5.40) M/uL Hgb 12.5 11.5 L (12.0-16.0) g/dl Hct 36.6 L 33.4 L (37.0-47.0) % MCV 91.3 90.8 (80.0-100.0) fL MCH 31.2 31.3 (25.0-34.0) pg MCHC 34.2 34.4 (32.0-36.0) g/dL RDW Std Deviation 43.8 42.9 (36.4-46.3) fL RDW Coeff of Nancy 13.2 13.2 (11.5-14.5) % Plt Count 199 147 (130-400) K/uL MPV 11.0 11.3 (9.4-12.4) fL Immature Gran % (Auto) 0.5 0.5 % Neut % (Auto) 75.6 77.2 % Lymph % (Auto) 16.5 15.1 % Mcduffie % (Auto) 7.0 6.9 % Eos % (Auto) 0.2 0.1 % Baso % (Auto) 0.2 0.2 % Neut # (Auto) 10.08 H 8.27 H (1.40-6.50) K/uL Lymph # (Auto) 2.20 1.62 (1.20-3.40) K/uL Mcduffie # (Auto) 0.93 H 0.74 H (0.11-0.59) K/uL Eos # (Auto) 0.03 0.01 (0.00-0.50) K/uL Baso # (Auto) 0.03 0.02 (0.00-0.20) K/uL Immature Gran # (Auto) 0.07 0.05 (0.01-0.20) K/uL Blood Type A Positive Antibody Screen NEGATIVE 01/10/23 Range/Units 05:42 WBC (4.8-10.8) K/ul RBC (4.20-5.40) M/uL Hgb 10.1 L (12.0-16.0) g/dl Hct 30.1 L (37.0-47.0) % MCV (80.0-100.0) fL MCH (25.0-34.0) pg MCHC (32.0-36.0) g/dL RDW Std Deviation (36.4-46.3) fL RDW Coeff of Nancy (11.5-14.5) % Plt Count (130-400) K/uL MPV (9.4-12.4) fL Immature Gran % (Auto) % Neut % (Auto) % Lymph % (Auto) % [place]duffie % (Auto) % Eos % (Auto) % Baso % (Auto) % Neut # (Auto) (1.40-6.50) K/uL Lymph # (Auto) (1.20-3.40) K/uL Mcduffie # (Auto) (0.11-0.59) K/uL Eos # (Auto) (0.00-0.50) K/uL Baso # (Auto) (0.00-0.20) K/uL Immature Gran # (Auto) (0.01-0.20) K/uL Blood Type Antibody Screen PE: General: Alert, orientedx3, NAD CVS: S1S2 RRR Lungs; CTAB Abd: soft, NT, ND, BS+, fundus firm, below Umbilicus Incision: Clean, dry, intact Perineum intact, Lochia rubra minimal Ext; NT, 1+/1+ edema, Homans sign neg/ neg AP: 32 yo s/p C Section, pod# 2 VSS Afebrile doing well Continue routine postop care Encourage ambulation, PO intake Desires d/c tonight after 48 hours All questions were answered Results & Data Vital Signs (Past 12 Hours) Vital Signs Temp Pulse Resp BP Pulse Ox O2 Del Method 01/10/23 07:50 36.8 C 82 16 127/73 96 Room Air 01/09/23 21:00 36.7 C 87 18 110/78 93 Room Air 01/09/23 22:51 36.8 C 62 18 127/74 97 Room Air
--- NOTE | 2023-01-19 22:18 | Discharge Summary ---
Date of Service January 19, 2023 Admission HPI Per Admitting Provider 32 F P0000 at 40+ weeks here for IOL . GBS is negative Discharge Data Consultations 01/06/23 08:01 Consult Anesthesiology Stat 01/08/23 19:23 Consult Anesthesiology Stat Procedures Performed Operation Date: 01/08/23 19:45 Actual Procedures p Section in LD for the live of a female child @ 2035(Bilateral) - Kira Dailey MD Hospital Course (1) Failed induction of labor, delivered: Patient is an 32-year-old G1, P0 at 40+ weeks of gestation who was admitted on January 06 for induction of labor for postdates. She has received vaginal Cervidil and then p.o. Cytotec for 2 days. There was no change in her cervix. When I took over on January 08 I placed the Burgos balloon catheter for mechanical dilatation and started on IV oxytocin. Patient went into active labor but has not changed her cervix despite decreased uterine contractions and AROM. Decision was made to proceed with primary delivery due to arrest of dilatation in active phase of labor. Patient was taken upper operating room where she has delivered a viable with primary . Her surgery was uncomplicated see dictated op note for details. On postop. Patient was doing well, vital signs stable afebrile, urine output was good and her pain was under control. On postop day #1 patient was doing well vital signs stable afebrile H&H was stable her Burgos was taken out and she started to ambulate and void. She was switched to regular diet and she started to pass scans. On postop day #2 patient was doing well vital signs stable afebrile physical exam was unremarka ble incision was clean dry intact bleeding was minimal. Her H&H was stable. She desired to discharge home on postop day #2. Discharge instructions were given, prescriptions were written for pain, she is to be seen in office in a week for incision check. All questions were answered.
== END 2023-01-10 23:00 | disposition home or self-care (01) | DRG 788 ==
LOC: 4S1 07:30 → 4E1 01-08 23:44